=== PATIENT | female | born 1985 | race Caucasian/White ===

== ENCOUNTER 2016-11-19 08:15 | Emergency (ER) | payer MEDICAID, OTHER ==
[~2016-11-19] VITALS: Ht 154.9 cm; Wt 81.3 kg
[~2016-11-19 08:15] MED LIST: ALBU2.5I INH; MEDR4PAK3 PO; NEBUMIS6 INH; ZITH250T PO
[2016-11-19 08:18] VITALS: BP 120/86; PULSE 79; RESP 16; TEMP 98.8; O2SAT 98
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
[2016-11-19] MEDS ORDERED: PENI500T PO (09:15)
== END 2016-11-19 09:27 | disposition home or self-care (01) ==
LOC: PHED 08:15
DX: J02.0 Streptococcal pharyngitis (principal); Z87.442 Personal history of urinary calculi
CPT/HCPCS: 87880; 99283

== ENCOUNTER 2016-12-19 12:53 | Emergency (ER) | payer MEDICAID, OTHER ==
[~2016-12-19] VITALS: Ht 154.9 cm; Wt 80.0 kg
[~2016-12-19 12:53] MED LIST changes: -ALBU2.5I INH; -MEDR4PAK3 PO; -NEBUMIS6 INH; +PENI500T PO; -ZITH250T PO
[2016-12-19 12:58] VITALS: BP 125/85; PULSE 76; RESP 16; TEMP 98.3; O2SAT 98
[2016-12-19] MEDS ORDERED: ZITHTAB PO (13:19)
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
== END 2016-12-19 13:25 | disposition home or self-care (01) ==
LOC: PHEFT 12:53
DX: J20.2 Acute bronchitis due to streptococcus (principal); Z86.59 Personal history of other mental and behavioral disorders; Z87.448 Personal history of other diseases of urinary system; Z87.39 Personal history of other diseases of the musculoskeletal system and connective tissue; Z87.891 Personal history of nicotine dependence
CPT/HCPCS: 99283

== ENCOUNTER 2017-01-06 16:26 | Emergency (ER) | payer MEDICAID, OTHER ==
[~2017-01-06] VITALS: Ht 154.9 cm; Wt 81.0 kg
[~2017-01-06 16:26] MED LIST changes: -PENI500T PO; +ZITHTAB PO
[2017-01-06 16:28] VITALS: BP 143/89; PULSE 96; RESP 18; TEMP 98.7; O2SAT 99
[2017-01-06] MEDS ORDERED: SODIUM CHLORIDE 0.9% FLUSH 10 ML FLUSH IVF PRN (16:45)
[2017-01-06] MEDS ORDERED: KETOROLAC TROMETHAMINE 30 MG/ML (IVP) VIAL IV PUSH ONE (16:45)
[2017-01-06] MEDS ORDERED: ASPIRIN 81 MG CHEW TAB PO ONE (16:45)
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
[2017-01-06 16:46] VITALS: RESP 15; O2SAT 99
[2017-01-06 17:07] LABS: AUTOMATED NEUTROPHIL # 5.3 TH/MM3 (1.8-7.7); BASOPHIL % 0.6 % (0.0-2.0); EOSINOPHIL # 0.1 TH/MM3 (0-0.4); EOSINOPHIL % 0.9 % (0.0-4.0); HEMATOCRIT 38.4 % (35.0-46.0); HEMO FLAGS DIFF FINAL; LYMPH % 22.6 % (9.0-44.0); LYMPHOCYTE # 1.7 TH/MM3 (1.0-4.8); MEAN CELL VOLUME 87.3 FL (80.0-100.0); MEAN CORPUSCULAR HEMOGLOBIN 30.3 PG (27.0-34.0); MEAN CORPUSCULAR HGB CONC 34.7 % (32.0-36.0); MONO % 5.2 % (0.0-8.0); NEUT % 70.7 % (16.0-70.0); PLATELET COUNT 173 TH/MM3 (150-450); RED CELL DISTRIBUTION WIDTH 12.4 % (11.6-17.2); WHITE BLOOD COUNT 7.5 TH/MM3 (4.0-11.0)
[2017-01-06 17:12] LABS: CHLORIDE 109 MEQ/L (98-107); POTASSIUM 3.6 MEQ/L (3.5-5.1); SODIUM (NA) 141 MEQ/L (136-145)
[2017-01-06 17:15] LABS: ANION GAP 9 MEQ/L (5-15); BICARBONATE 23.1 MEQ/L (21.0-32.0); BLOOD UREA NITROGEN 21 MG/DL (7-18); MAGNESIUM 2.3 MG/DL (1.5-2.5)
--- NOTE | 2017-01-06 17:16 | RADHPO ---
EXAM DATE/TIME: 01/06/2017 17:04 [facility] COMPARISON: No previous studies available for comparison. INDICATIONS : Chest tightness and pressure. MEDICAL HISTORY : None. SURGICAL HISTORY : None. ENCOUNTER: Initial ACUITY: 4 - 6 days PAIN SCORE: 1/10 LOCATION: Right chest FINDINGS: A single view of the chest demonstrates the lungs to be symmetrically aerated without evidence of mas s, infiltrate or effusion. The cardiomediastinal contours are unremarkable. Osseous structures are intact. CONCLUSION: No acute disease. Jose Okeefe MD on January 06, 2017 at 17:14 Board Certified Radiologist. This report was verified electronically.
[2017-01-06 17:18] LABS: APTT (PATIENT) 26.6 SEC (24.3-30.1); PROTHROMBIN TIME - PATIENT 10.6 SEC (9.8-11.6)
[2017-01-06 17:19] LABS: GLOMERULAR FILTRATION RATE 125 ML/MIN (>89)
[2017-01-06 17:22] LABS: CREATINE KINASE 59 U/L (26-192)
[2017-01-06 17:24] LABS: BETA HCG QUANT LESS THAN 1 MIU/ML (0-5)
[2017-01-06] MEDS: RESP: ALBUTEROL 2.5 MG/IPRATROPIUM 0.5 MG NEB (SCH) INH ×2 (17:39→17:40)
[2017-01-06 17:55] VITALS: BP 116/67; PULSE 78; RESP 15; O2SAT 99
[2017-01-06 19:03] VITALS: BP 107/68; PULSE 85; RESP 15; TEMP 99; O2SAT 98
[2017-01-06 20:14] VITALS: BP 116/66; TEMP 99
--- NOTE | 2017-01-07 05:54 | EKG ---
Date Performed: 01/06/2017 Time Performed: 16:41:30 PTAGE: 31 years EKG: Sinus rhythm Normal ECG NO PREVIOUS TRACING DOCTOR: Vidal Manriquez Interpretating Date/Time 01/07/2017 05:52:28
== END 2017-01-06 20:24 | disposition home or self-care (01) ==
LOC: PHED 16:26
DX: R07.89 Other chest pain (principal); R06.00 Dyspnea, unspecified; Z87.891 Personal history of nicotine dependence; R05 Cough
CPT/HCPCS: 71010; 80048; 82550; 83735; 84484; 84702; 85025; 85379; 85610; 85730; 93005; 94640; 94664; 96374; 99285; J1885

== ENCOUNTER 2017-04-30 12:33 | Emergency (ER) | payer MEDICAID ==
[~2017-04-30] VITALS: Ht 154.9 cm; Wt 82.6 kg
[2017-04-30 12:36] VITALS: BP 140/89; PULSE 86; RESP 17; TEMP 99.5; O2SAT 99
[2017-04-30] MEDS ORDERED: AUGM875T3 PO (13:03)
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
== END 2017-04-30 13:12 | disposition home or self-care (01) ==
LOC: PHEFT 12:33
DX: J01.00 Acute maxillary sinusitis, unspecified (principal)
CPT/HCPCS: 99283